=== PATIENT | male | born 1965 | race Two or more races ===

== ENCOUNTER 2023-12-01 01:38 | Emergency (ER) | payer MEDICARE ==
[2023-12-01 02:46] VITALS: BP 102/63; PULSE 100; RESP 16; TEMP 97.6
--- NOTE | 2023-12-01 03:55 | ED ---
Fall HPI - General Source: patient Mode of arrival: wheelchair <Marino Brizuela - Last Filed: 12/01/23 03:57> - General Source: patient Mode of arrival: wheelchair Limitations: no limitations - History of Present Illness MD Complaint: fall <Iliana Barrios - Last Filed: 12/01/23 06:51> - General Chief Complaint: Fall Stated Complaint: Fall facial injury Time Seen by Provider: 12/01/23 03:54 - History of Present Illness Initial Comments: 58-year-old male on thinners presents to the ED with the chief complaint of slip and fall. Patient states she was going out to his car when he slipped on a patch of ice and fell forward landing primarily onto his right side. States that he hit his face on the ground and now notes pain on that side of his face and neck pain as well. Denies LOC at this time. (Marino Brizuela) This is a 58 year old male who presents to the emergency department for a fall. States that he slipped on a patch of ice outside earlier today and landed on his right side. He injured the right side of his face and neck. He is still able to move his head. Denies any loss of consciousness and he is not taking any blood thinners. Denies sustaining any other injuries. (Iliana Barrios) Review of Systems ROS Other: All systems not noted in ROS Statement are negative. <Marino Brizuela - Last Filed: 12/01/23 03:57> ROS Other: All systems not noted in ROS Statement are negative. <Iliana Barrios - Last Filed: 12/01/23 06:51> ROS Statement: Those systems with pertinent positive or pertinent negative responses have been documented in the HPI. Past Medical History Past Medical History: Diabetes Mellitus, Hypertension History of Any Multi-Drug Resistant Organisms: None Reported Past Surgical History: Orthopedic Surgery Past Psychological History: No Psychological Hx Reported Smoking Status: Never smoker Past Alcohol Use History: None Reported Past Drug Use History: None Reported <Marino Brizuela - Last Filed: 12/01/23 03:57> General Exam Limitations: no limitations <Marino Brizuela - Last Filed: 12/01/23 03:57> Limitations: no limitations General appearance: alert, in no apparent distress Head exam: Present: other (Superficial abrasion and tenderness to the right side of the face. No active bleeding. ) Eye exam: Present: normal appearance, PERRL, EOMI. Absent: scleral icterus, conjunctival injection, periorbital swelling Respiratory exam: Present: normal lung sounds bilaterally. Absent: respiratory distress, wheezes, rales, rhonchi, stridor Cardiovascular Exam: Present: regular rate, normal rhythm, normal heart sounds. Absent: systolic murmur, diastolic murmur, rubs, gallop, clicks Neurological exam: Present: alert, oriented X3, CN II-XII intact Psychiatric exam: Present: normal affect, normal mood <Iliana Barrios - Last Filed: 12/01/23 06:51> - General Exam Comments Initial Comments: Visual Physical Exam Vital signs reviewed General: Well-appearing, nontoxic, no acute distress. Eyes: PERRLA, EOMI ENT: Airway patent Chest: Nonlabored breathing Skin: No visual rash, normal skin tone Neuro: Alert and oriented 3 Musculoskeletal: No gross abnormalities (Marino Brizuela) Course Vital Signs 12/01/23 02:15 Temperature 97.6 F Pulse Rate 100 Respiratory 16 Rate Blood Pressure 102/63 O2 Sat by Pulse 98 Oximetry Medical Decision Making <Marino Brizuela - Last Filed: 12/01/23 03:57> - Radiology Data Radiology results: report reviewed, image reviewed <Iliana Barrios - Last Filed: 12/01/23 06:51> - Medical Decision Making Quicknote portion performed. Signed Marino Brizuela PA-C (Marino Brizuela) This is a 58 year old male who presents to the emergency department for a fall. Was pt. sent in by a medical professional or institution? @ -No Did you speak to anyone other than the patient for history? @ -No Did you review nursing and triage notes? @ -Yes, and I agree, it is accurate with regards to the patient's symptoms. Were old charts reviewed? @ -No Differential Diagnosis? @ -Differential Diagnosis Head Injury: Contusion, hematoma, intracranial hemorrhage, skull fracture, whiplash, conc ussion, this is not meant to be an all-inclusive list. EKG interpreted by me (3pts min.)? @ -Not obtained X-rays interpreted by me (1pt min.)? @ -Not obtained CT interpreted by me (1pt min.)? @ -Computed tomography scan of the brain and c-spine obtained. My interpretation identifies no evidence of an acute intracranial hemorrhage, skull fracture, or cervical spine fracture. U/S interpreted by me (1pt. min.)? @ -Not obtained What testing was considered but not performed? (CT, X-rays, U/S, labs)? Why? @ -None What meds were considered but not given? Why? @ -None Did you discuss the management of the patient with other professionals? @ -No Did you reconcile home meds? @ -No Was smoking cessation discussed for >3mins.? @ -No Was critical care preformed (if so, how long)? @ -No Were there social determinants of health that impacted care today? How? (Homelessness, low income, unemployed, alcoholism, drug addiction, transportation, low edu. Level, literacy, decrease access to med. care, senior care, rehab)? @ -No Was there de-escalation of care discussed even if they declined? (Discuss DNR or withdrawal of care, Hospice)? @ -No What co-morbidities impacted this encounter? (DM, HTN, Smoking, COPD, CAD, Cancer, CVA, Hep., AIDS, mental health diagnosis, sleep apnea, morbid obesity)? @ -None Was patient admitted / discharged? @ -Discharged. CT scan of the brain and c-spine obtained revealing no acute process. He has a superficial abrasion to the right side of the face with no active bleeding and no repair indicated. Advised Ibuprofen and Tylenol as needed for pain relief and the patient was discharged home in stable condition. Undiagnosed new problem with uncertain prognosis? @ -None Drug Therapy requiring intensive monitoring for toxicity (Heparin, Nitro, Insulin, Cardizem)? @ -None Were any procedures done? @ -None Diagnosis/symptom? @ -Fall, head injury Acute, or Chronic, or Acute on Chronic? @ -Acute Uncomplicated (without systemic symptoms) or Complicated (systemic symptoms)? @ -Uncomplicated Side effects of treatment? @ -None Exacerbation, Progression, or Severe Exacerbation] @ -Not applicable Poses a threat to life or bodily function? @ -No Return precautions reviewed in depth, the patient is instructed to return to the emergency department with any new, worsening, or concerning symptoms. Patient verbalized understanding. This case was discussed in detail with the attending ED physician, Dr. Nash. Presentation, findings, and treatment plan discussed in detail as well. (Iliana Barrios) Disposition <Marino Brizuela - Last Filed: 12/01/23 03:57> Is patient prescribed a controlled substance at d/c from ED?: No Time of Disposition: 06:30 <Iliana Barrios - Last Filed: 12/01/23 06:51> Clinical Impression: Fall, Head injury Disposition: HOME SELF-CARE Instructions (If sedation given, give patient instructions): Head Injury (ED) Additional Instructions: Return to the emergency department with any new, worsening, or concerning symptoms. Take Tylenol as needed for pain relief. Follow up with your primary care provider in 1-2 days. Referrals: None,Stated [Primary Care Provider] - 1-2 days
--- NOTE | 2023-12-01 04:38 | CT ---
EXAM: CT Head Without Intravenous Contrast CLINICAL HISTORY: ITS.REASON CT Reason: pain TECHNIQUE: Axial computed tomography images of the head/brain without intravenous contrast. CTDI is 45.2 mGy and DLP is 677.75 mGy-cm. This CT exam was performed using one or more of the following dose reduction techniques: automated exposure control, adjustment of the mA and/or kV according to patient size, and/or use of iterative reconstruction technique. COMPARISON: No relevant prior studies available. FINDINGS: Brain: No hemorrhage or mass effect. Prior left ALEJANDRO infarct. Ventricles: No hydrocephalus. Bones/joints: Unremarkable. Soft tissues: Unremarkable. Sinuses: No air fluid level. Mastoid air cells: Clear. IMPRESSION: No acute hemorrhage, hydrocephalus, or mass effect. EXAM: CT Cervical Spine Without Intravenous Contrast CLINICAL HISTORY: ITS.REASON CT Reason: pain TECHNIQUE: Axial computed tomography images of the cervical spine without intravenous contrast. CTDI is 11.6 mGy and DLP is 677.75 mGy-cm. This CT exam was performed using one or more of the following dose reduction techniques: automated exposure control, adjustment of the mA and/or kV according to patient size, and/or use of iterative reconstruction technique. COMPARISON: No relevant prior studies available. FINDINGS: Vertebrae: No acute fracture. Discs/spinal canal/neural foramina: degenerative changes. Soft tissues: No prevertebral swelling. IMPRESSION: No acute fracture or subluxation.
== END 2023-12-01 07:00 | disposition home or self-care (01) ==
LOC: EC 01:38
DX: S00.81XA Abrasion of other part of head, initial encounter (principal); E11.9 Type 2 diabetes mellitus without complications; I10 Essential (primary) hypertension; W00.0XXA Fall on same level due to ice and snow, initial encounter
CPT/HCPCS: 70450; 72125; 99284